=== PATIENT | female | born 1970 | race Two or more races ===

== ENCOUNTER 2025-08-14 11:11 | Inpatient (IN) | payer OTHER ==
[~2025-08-14] VITALS: Ht 175.3 cm; Wt 102.6 kg
--- NOTE | 2025-08-14 12:02 | ED.PDOC ---
History of Present Illness HPI Comments 54-year-old female presents to the ER with the chief complaint of nausea and vomiting. Patient reports an having sharp posterior headache associated with foggy memory, dizziness, nausea and an elevated blood pressure with altered yesterday. This morning the patient woke up with the elevated blood pressure and the for which prompted the patient to go to the ER. Patient notes on the headache being the worst that she has ever had. Denies any other symptoms at this time. Denies chills, fever, /V/D, SOB, CP. No other associated symptoms, modifiers, recent injuries or sick contacts present at this time. Chief Complaint: Nausea/Vomiting Time Seen by MD: 11:30 Reviewed Notes: Nurses Notes, Medications, Allergies Allergies: Coded Allergies: Penicillins (Verified Allergy, Severe, 08/14/25) Information Source: Patient Mode of Arrival: Ambulatory Severity: Moderate Timing: Hours Duration: Since onset, Hours Prehospital treatment: None Past Medical History PAST MEDICAL HISTORY: Denies Surgical History: Denies all surgeries ADVANCED PRACTICE PROVIDER History: No Pertinent ADVANCED PRACTICE PROVIDER History Family History Family History: Reviewed,noncontributory to illness, Unknown Social History Smoker: Non-Smoker Alcohol: Denies ETOH Use Drugs: Denies Drug Use Lives In: Home Constitutional: denies: chills, diaphoresis, fatigue, fever, malaise, sweats, weakness, others EENTM: denies: blurred vision, double vision, ear bleeding, ear discharge, ear drainage, ear pain, ear ringing, eye pain, eye redness, hearing loss, mouth pain, mouth swelling, nasal discharge, nose bleeding, nose congestion, nose pain, photophobia, tearing, throat pain, throat swelling, voice changes, others Respiratory: denies: cough, hemoptysis, orthopnea, SOB at rest, shortness of breath, SOB with excertion, stridor, wheezing, others Cardiovascular: denies: chest pain, dizzy spells, diaphoresis, Dyspnea on exertion, edema, irregular heart beat, left arm pain, lightheadedness, palpitations, PND, syncope, others Gastrointestinal: reports: nausea; denies: abdomen distended, abdominal pain, blood streaked bowels, constipated, diarrhea, dysphagia, difficulty swallowing, hematemesis, melena, poor appetite, poor fluid intake, rectal bleeding, rectal pain, vomiting, others Genitourinary: denies: abnormal vagina bleeding, burning, dyspareunia, dysuria, flank pain, frequency, hematuria, incontinence, pain, , vagina discharge, urgency, others Neurological: reports: dizziness, headache; denies: fainting, left sided numbness, left sided weakness, numbness, paresthesia, pre-existing deficit, right sided numbness, right sided weakness, seizure, speech problems, tingling, tremors, weakness, others Musculoskeletal: denies: back pain, gout, joint pain, joint swelling, muscle pain, muscle stiffness, neck pain, others Integumetry: denies: bruises, change in color, change in hair/nails, dryness, laceration, lesions, lumps, rash, wounds, others Allergic/Immunocompromised: denies: Difficulty Healing, Frequent Infections, Hives, Itching, others Hematologic/Lymphatic: denies: anemia, blood clots, easy bleeding, easy bruising, swollen glands, others Endocrine: denies: excessive hunger, excessive sweating, excessive thirst, excessive urination, flushing, intolerance to cold, intolerance to heat, u nexplained weight gain, unexplained weight loss, others Psychiatric: denies: anxiety, bipolar disorder, depression, hopeless, panic disorder, schizophrenia, sleepless, suicidal, others All Other Systems: Reviewed and Negative Physical Exam General Appearance: No Apparent Distress, Normal HEENT: Normal ENT Inspection, Pharynx Normal, TMs Normal Neck: Full Range of Motion, Non-Tender, Normal, Normal Inspection Respiratory: Chest Non-Tender, Lungs Clear, No Accessory Muscle Use, No Respiratory Distress, Normal Breath Sounds Cardiovascular: No Edema, No JVD, No Murmur, No Gallop, Normal Peripheral P ulses, Regular Rate/Rhythm Breast Exam: Deferred Gastrointestinal: No Organomegaly, Non Tender, No Pulsatile Mass, Normal Bowel Sounds, Soft Genitalia: Deferred Pelvic: Deferred Rectal: Deferred Extremities: No calf tenderness, Normal capillary refill, Normal inspection, Normal range of motion, Non-tender, No pedal edema Musculoskeletal : Apperance: Normal Neurologic: Alert, dial brusher II-XII nml as Tested, No Motor Deficits, Normal Affect, Normal Mood, No Sensory Deficits Cerebellar Function: Normal Reflexes: Normal Skin: Dry, Normal Color, Warm Lymphatic: No Adenopathy Was a procedure done? Was a procedure done?: No Differential Dx Considerations may include: See MDM X-Ray, Labs, Meds, VS Vital Signs Date Time Temp Pulse Resp B/P (MAP) Pulse Ox O2 Delivery O2 Flow Rate FiO2 08/14/25 14:15 Room Air* 0 21 08/14/25 14:15 97.8 79 16 160/91 (114) 98 97.8 08/14/25 12:10 157/106 08/14/25 12:02 98.7 69 16 157/106 (123) 98 98.7 08/14/25 12:02 69 16 98 Room Air 08/14/25 11:45 61 08/14/25 11:17 98.0 67 15 161/102 99 98.0 Lab Test 08/14/25 13:02 08/14/25 12:30 08/14/25 12:09 08/14/25 11:57 Range/Units Troponin I High Sensitivity 32 30 </=34 ng/L Urine Color Yellow Yellow Urine Clarity Clear Clear Urine pH 6.5 5.0-9.0 Urine Specific [place] 1.025 1.001-1.035 Urine Protein Negative Negative Urine Ketones Negative Negative Urine Blood Negative Negative /uL Urine Nitrite Negative Negative Urine Bilirubin Negative Negative Urine Urobilinogen 3 H Negative mg/dL Urine Leukocyte Esterase Negative Negative /uL Urine RBC 2 0 - 4 /hpf Urine Microscopic WBC 3 0-5 /HPF Urine Squamous Epithelial Cells Few <5 /hpf Urine Bacteria None seen None Seen /hpf Urine Mucus Few None Seen Urine Glucose Normal Normal mg/dL White Blood Count 4.0 L 4.4-10.8 10^3/uL Red Blood Count 5.45 H 4.0-5.20 10^6/uL Hemoglobin 13.7 12.2-16.2 g/dL Hematocrit 41.4 36.0-46.0 % Mean Corpuscular Volume 76.0 L 80.0-100.0 fL Mean Corpuscular Hemoglobin 25.1 L 28.0-32.0 pg Mean Corpuscular Hemoglobin Concent 33.1 32.0-36.0 g/dL Red Cell Distribution Width 17.2 H 11.8-14.3 % Platelet Count 279 140-450 10^3/uL Mean Platelet Volume 8.4 6.9-10.8 fL Neutrophils (%) (Auto) 48.1 37.0-80.0 % Lymphocytes (%) (Auto) 37.3 10.0-50.0 % Monocytes (%) (Auto) 10.4 0.0-12.0 % Eosinophils (%) (Auto) 3.3 0.0-7.0 % Basophils (%) (Auto) 0.9 0.0-2.0 % Neutrophils # (Auto) 1.9 1.6-8.6 10 ^3/uL Lymphocytes # (Auto) 1.5 0.4-5.4 10 ^3/uL Monocytes # (Auto) 0.4 0-1.3 10 ^3/uL Eosinophils # (Auto) 0.1 0-0.8 10 ^3/uL Basophils # (Auto) 0 0-0.2 10 ^3/uL Nucleated Red Blood Cells 0.1 % Sodium Level 143 136-145 mmol/L Potassium Level 3.9 3.5-5.1 mmol/L Chloride Level 108 H 98-107 mmol/L Carbon Dioxide Level 24 20-31 mmol/L Anion Gap 11 5-15 Blood Urea Nitrogen 10 9-23 mg/dL Creatinine 0.88 0.550-1.02 mg/dL Glomerular Filtration Rate Calc 78 >90 mL/min BUN/Creatinine Ratio 11.4 10.0-20.0 Serum Glucose 110 H 74-106 mg/dL Calcium Level 9.4 8.7-10.4 mg/dL B-Type Natriuretic Peptide 22.36 0-100 pg/mL POC Glucose 109 H 70-106 mg/dl Current Medications Medications (Trade) Dose Ordered Sig/Juaquin Route Start Time Stop Time Status Last Admin Hydralazine HCl (Apresoline Injection) 10 mg ONCE ONCE IV 08/14/25 11:45 08/14/25 11:46 DC 08/14/25 12:10 Metoclopramide HCl (Reglan Injection) 10 mg ONCE ONCE IV 08/14/25 12:15 08/14/25 12:16 DC 08/14/25 12:13 Acetaminophen (Tylenol Tablet) 650 mg ONCE ONCE PO 08/14/25 12:15 08/14/25 12:16 DC 08/14/25 12:13 Metoclopramide HCl (Reglan Injection) 5 mg ONCE ONCE IV 08/14/25 12:30 08/14/25 12:32 DC 08/14/25 12:35 Ondansetron HCl (Zofran) 4 mg ONCE ONCE IV 08/14/25 13:45 08/14/25 13:48 DC 08/14/25 14:15 Time of 1ST Reevaluation: 12:00 Reevaluation 1ST: Unchanged Patient Education/Counseling: Diagnosis, Treatment, Prognosis Family Education/Counseling: No Family Present Additional Information Medical Decision Making: A 54-year-old previously healthy female presents with acute severe left-sided headache, dizziness, nausea, and markedly elevated blood pressure. She also reported difficulty ambulating due to dizziness, significantly increasing concern for acute neurologic dysfunction, posterior circulation events, hypertensive crisis, or early hypertensive emergency. The differential diagnosis included intracranial hemorrhage, ischemic stroke (especially posterior circu lation), PRES, hypertensive emergency, subarachnoid hemorrhage, vestibular neuritis, migraine, ACS, and metabolic causes. Workup: CBC: benign; no leukocytosis or anemia. BMP: benign; no MERY or electrolyte derangements. Initial troponin: negative; reducing but not eliminating ACS risk. CT brain (independently reviewed by me): no acute findingsno bleed, mass effect, or hydrocephalus. Chest X-ray: benign; no pulmonary edema or widened mediastinum. EKG: non-ischemic; normal sinus rhythm without ST/T changes. Despite negative imaging, the presence of severe headache, markedly elevated blood pressure, and gait impairment(difficulty ambulating) raises concern for early hypertensive encephalopathy or evolving neurologic complications in the appropriate clinical context. ED Course / Treatment: Given her symptomatic hypertension and neurologic complaints, the patient was treated with IV hydralazine for blood pressure reduction. She also received IV Zofran, IV Reglan, and acetaminophen with partial symptomatic improvement. Serial neurologic exams were performed to ensure no clinical deterioration. She continued to report dizziness and unsteadiness, requiring assistance with ambulation, increasing concern for evolving hypertensive end-organ involvement. Given the constellation of symptoms and the requirement for IV antihypertensive management, outpatient care would be unsafe. Risk / Disposition: The patient requires hospital admission for: Continued BP monitoring and control Serial neurologic assessments Monitoring for progression toward hypertensive emergency Consideration of MRI brain if symptoms persist Exclusion of secondary causes of hypertension This encounter involved evaluation of high-risk conditions, high-risk medication administration, extensive diagnostic workup, and decision to admit. This meets criteria for high-complexity MDM (51750). Critical Care (38 Minutes) The patient required critical care due to a high probability of imminent or life-threatening deterioration related to severely elevated blood pressure with associated neurologic symptoms (severe headache, dizziness, difficulty ambulating), placing her at risk for intracranial hemorrhage, ischemic stroke, hypertensive encephalopathy, and acute end-organ damage. Critical care activities included: Serial neurologic examinations to monitor for stroke or encephalopathy Management and titration of IV hydralazine for acute blood pressure control Continuous monitoring for signs of progressive hypertensive emergency Review and interpretation of CT brain, EKG, CXR, and laboratory studies Clinical reassessment to evaluate response to antihypertensive therapy Coordination of admission for further management and monitoring Counseling the patient regarding risks, diagnostic findings, and treatment plan A total of 38 minutes of critical care time was provided, exclusive of separately billable procedures. SEPSIS Sepsis Screen Date sepsis recognized/suspect: Aug 14, 2025 Time Sepsis recognized/suspect: 1118 Recent Procedure: No On Antibiotic Therapy: No Respiratory Rate >20: No Heart Rate >90: No Temp<36 C (96.8 F) or >38.3 C: No SBP <90 or MAP <65 mmHG: No New Acute Mental Status Change: No Is the patient on CPAP, BIPAP,: No Physician Orders Electrocardigram (08/14/25 11:32) Chest Portable (08/14/25 11:43) Head Without Contrast (08/14/25 11:43) Troponin-I Hs (08/14/25 14:43) Electrocardigram (08/14/25 12:43) Electrocardigram (08/14/25 14:43) Vital Signs Date Time Temp Pulse Resp B/P (MAP) Pulse Ox O2 Delivery O2 Flow Rate FiO2 08/14/25 14:15 Room Air* 0 21 08/14/25 14:15 97.8 79 16 160/91 (114) 98 97.8 08/14/25 12:10 157/106 08/14/25 12:02 98.7 69 16 157/106 (123) 98 98.7 08/14/25 12:02 69 16 98 Room Air 08/14/25 11:45 61 08/14/25 11:17 98.0 67 15 161/102 99 98.0 Laboratory Tests Test 08/14/25 12:09 White Blood Count 4.0 10^3/uL (4.4-10.8) L Medications Medications Dose Ordered Sig/Juaquin Route Start Time Stop Time Status Last Admin Dose Admin Acetaminophen 650 mg ONCE ONCE PO 08/14/25 12:15 08/14/25 12:16 DC 08/14/25 12:13 Hydralazine HCl 10 mg ONCE ONCE IV 08/14/25 11:45 08/14/25 11:46 DC 08/14/25 12:10 Metoclopramide HCl 5 mg ONCE ONCE IV 08/14/25 12:30 08/14/25 12:32 DC 08/14/25 12:35 Metoclopramide HCl 10 mg ONCE ONCE IV 08/14/25 12:15 08/14/25 12:16 DC 08/14/25 12:13 Ondansetron HCl 4 mg ONCE ONCE IV 08/14/25 13:45 08/14/25 13:48 DC 08/14/25 14:15 Departure 1 Departure Time of Disposition: 14:59 Impression: Primary Impression: Hypertensive emergency Additional Impressions: Migraine Intractable nausea and vomiting Disposition: ADMITTED INPATIENT Admit to: Tele Condition: Guarded Critical Care Note Critical Care Time?: Yes Stability Stability form required: No I personally scribed for FRAN ZEPEDA MD ([email or web address]) on 08/14/25 at 12:02. Electronically submitted by Rober Bailon ([email or web address]). FRAN ZEPEDA MD Aug 14, 2025 12:02
[2025-08-14] MEDS: hydrALAZINE HCL 20 MG/ML VL IV ONE (12:10)
[2025-08-14] MEDS: ACETAMINOPHEN 325 MG TAB PO ONE (12:13)
[2025-08-14] MEDS: METOCLOPRAMIDE HCL 5MG/ml INJ 2ml VIAL IV ONE ×2 (12:13→12:35)
--- NOTE | 2025-08-14 12:17 | DVH ---
XY CHEST PORTABLE, HISTORY: htn, dizziness COMPARISON: None None TECHNICAL DATA: 1 view of the chest was obtained. FINDINGS: Lines and tubes: None Cardiomediastinal silhouette: normal Pulmonary vasculature: normal Lung expansion: normal Lung airspace: normal Lung interstitium: normal Pleura: normal Pneumothorax: no Bones: Unremarkable Other: no IMPRESSION: No acute intrathoracic abnormality.
--- NOTE | 2025-08-14 12:21 | DVH ---
EXAM DESCRIPTION: CT HEAD WITHOUT CONTRAST CLINICAL HISTORY: htn, dizziness COMPARISON: None TECHNIQUE: Noncontrast CT head was performed. Coronal MPR images were generated. CTDI/ DLP = / . Dose reduction technique with one or more of the following methods was performed: Automated exposure control, adjustment of the mA and/or kV according to patient size, use of iterative reconstruction technique. FINDINGS: No evidence of acute intracranial hemorrhage. No mass effect. No extra-axial collections of fluid or blood. The brain is normal in attenuation. The ventricles and sulci are normal in size for age. Clear basal cisterns. The calvarium is intact. The soft tissues are unremarkable. The paranasal sinuses and mastoid air cells are clear. IMPRESSION: 1. No acute intracranial findings.
[2025-08-14] MEDS: METOCLOPRAMIDE HCL 5MG/ml INJ 2ml VIAL ONE (12:41)
[2025-08-14 12:59] LABS: Hemoglobin 13.7 g/dL (12.2-16.2); Nucleated Red Blood Cells % 0.1 %
[2025-08-14 13:03] LABS: Hematocrit 41.4 % (36.0-46.0); Mean Corpuscular Hemoglobin 25.1 pg (28.0-32.0); Mean Corpuscular Volume 76.0 fL (80.0-100.0)
[2025-08-14 13:07] LABS: Potassium 3.9 mmol/L (3.5-5.1); Sodium 143 mmol/L (136-145)
[2025-08-14 13:08] LABS: Anion Gap 11 (5-15); Calcium 9.4 mg/dL (8.7-10.4); Carbon Dioxide 24 mmol/L (20-31)
[2025-08-14 13:09] LABS: Chloride 108 mmol/L (98-107)
[2025-08-14 13:13] LABS: BUN/Creatinine Ratio 11.4 (10.0-20.0); Blood Urea Nitrogen 10 mg/dL (9-23)
[2025-08-14 13:16] LABS: Glucose 110 mg/dL (74-106)
[2025-08-14 13:16] LABS: Urine Protein, UAD Negative (Negative)
[2025-08-14] MEDS: ONDANSETRON HCL 4 MG/2 ML VIAL IV ONE (14:15)
[2025-08-14] MEDS: HYDROcodone-ACET 7.5/325MG TAB PO ONE (17:07)
[2025-08-14 18:55] VITALS: PULSE 67; RESP 16; O2SAT 99
[2025-08-14 19:21] VITALS: PULSE 63; RESP 14; O2SAT 99
[2025-08-14] MEDS ORDERED: TEMAZEPAM 15 MG CAP PO PRN (19:30)
[2025-08-14] MEDS: ACETAMINOPHEN 325 MG TAB PO PRN (20:57)
--- NOTE | 2025-08-14 21:39 | DVHHP2 ---
History of Present Illness Reason for Visit: Headache History of Present Illness 54-year-old female presents for evaluation of a headache. Patient reports a three day history of developing a headache. Patient checked her blood pressure and it was elevated. On arrival to the emergency department her blood pressure was in the 180s. She also reports some dizziness and nausea. Patient is currently not taking any medications. Denies chest pain or shortness for breath. Past Medical History Denies Past Surgical History Denies Family History Noncontributory Smoke: No ALCOHOL: none Drugs: None Lives: with Family Review of Systems Review of Systems Review of systems are currently negative otherwise addressed in HPI. Allergies: Coded Allergies: Penicillins (Verified Allergy, Severe, 08/14/25) Medications Current Medications Medications Dose Ordered Sig/Juaquin Route Start Time Stop Time Status Last Admin Dose Admin Hydralazine HCl 10 mg Q6HP PRN IV 08/14/25 19:30 Temazepam 15 mg QHSP PRN PO 08/14/25 19:30 Ondansetron HCl 4 mg Q4HP PRN IV 08/14/25 19:30 Acetaminophen 650 mg Q6HP PRN PO 08/14/25 19:30 08/14/25 20:57 650 MG Sumatriptan Succinate 50 mg Q2HP PRN PO 08/14/25 21:45 UNV Acetaminophen/ Hydrocodone Bitart 1 tab Q4HP PRN PO 08/14/25 21:45 UNV Acetaminophen 650 mg Q6HP PRN PO 08/14/25 21:45 UNV Lisinopril 10 mg DAILY PO 08/15/25 10:00 UNV Aspirin 81 mg DAILY PO 08/15/25 10:00 UNV Atorvastatin Calcium 10 mg HS PO 08/14/25 22:00 UNV Exam Vital Signs Vital Signs Date Time Temp Pulse Resp B/P (MAP) Pulse Ox O2 Delivery O2 Flow Rate FiO2 08/14/25 20:57 98.4 08/14/25 20:00 69 08/14/25 19:21 14 99 Room Air* 0 08/14/25 19:21 158/94 (115) Exam Gen: 54-year-old female in mild distress, obese Skin: Warm, dry, normal color and texture, no rash. HEENT: Normocephalic atraumatic, mucous membranes moist and pink. Neck: Cervical and supraclavicular nodes normal without enlargement, trachea is midline, thyroid gland is normal without masses. Pulmonary: Clear to auscultation and percussion bilaterally. Cardiac: Regular rate and rhythm. No murmur Abdomen: Soft, nontender, nondistended, bowel sounds present all 4 quadrants, no guarding, no rigidity, no organomegaly. Extremities: No cyanosis, clubbing, no edema Neuro: Cranial nerves II through XII grossly intact, normal affect and speech, no focal motor deficits. Labs/Xrays ORDERING PHYSICIAN: FRAN ZEPEDA MD PROCEDURE(s): CXRP - CHEST PORTABLE REASON: htn, dizziness ORDER NUMBER(s): [id number], ACCESSION NUMBER(s): [id number] CHEST PORTABLE, HISTORY: htn, dizziness COMPARISON: None None TECHNICAL DATA: 1 view of the chest was obtained. FINDINGS: Lines and tubes: None Cardiomediastinal silhouette: normal Pulmonary vasculature: normal Lung expansion: normal Lung airspace: normal Lung interstitium: normal Pleura: normal Pneumothorax: no Bones: Unremarkable Other: no IMPRESSION: No acute intrathoracic abnormality. RING PHYSICIAN: FRAN ZEPEDA MD PROCEDURE(s): HWOCT - HEAD WITHOUT CONTRAST REASON: htn, dizziness ORDER NUMBER(s): [id number], ACCESSION NUMBER(s): [id number] EXAM DESCRIPTION: CT HEAD WITHOUT CONTRAST CLINICAL HISTORY: htn, dizziness COMPARISON: None TECHNIQUE: Noncontrast CT head was performed. Coronal MPR images were generated. CTDI/ DLP = / . Dose reduction technique with one or more of the following methods was performed: Automated exposure control, adjustment of the mA and/or kV according to patient size, use of iterative reconstruction technique. FINDINGS: No evidence of acute intracranial hemorrhage. No mass effect. No extra-axial collections of fluid or blood. The brain is normal in attenuation. The ventricles and sulci are normal in size for age. Clear basal cisterns. The calvarium is intact. The soft tissues are unremarkable. The paranasal sinuses and mastoid air cells are clear. IMPRESSION: 1. No acute intracranial findings. Labs Test 08/14/25 15:26 08/14/25 12:30 08/14/25 12:09 08/14/25 11:57 Range/Units Troponin I High Sensitivity 37 *H </=34 ng/L Urine Color Yellow Yellow Urine Clarity Clear Clear Urine pH 6.5 5.0-9.0 Urine Specific Kimball 1.025 1.001-1.035 Urine Protein Negative Negative Urine Ketones Negative Negative Urine Blood Negative Negative /uL Urine Nitrite Negative Negative Urine Bilirubin Negative Negative Urine Urobilinogen 3 H Negative mg/dL Urine Leukocyte Esterase Negative Negative /uL Urine RBC 2 0 - 4 /hpf Urine Microscopic WBC 3 0-5 /HPF Urine Squamous Epithelial Cells Few <5 /hpf Urine Bacteria None seen None Seen /hpf Urine Mucus Few None Seen Urine Glucose Normal Normal mg/dL White Blood Count 4.0 L 4.4-10.8 10^3/uL Red Blood Count 5.45 H 4.0-5.20 10^6/uL Hemoglobin 13.7 12.2-16.2 g/dL Hematocrit 41.4 36.0-46.0 % Mean Corpuscular Volume 76.0 L 80.0-100.0 fL Mean Corpuscular Hemoglobin 25.1 L 28.0-32.0 pg Mean Corpuscular Hemoglobin Concent 33.1 32.0-36.0 g/dL Red Cell Distribution Width 17.2 H 11.8-14.3 % Platelet Count 279 140-450 10^3/uL Mean Platelet Volume 8.4 6.9-10.8 fL Neutrophils (%) (Auto) 48.1 37.0-80.0 % Lymphocytes (%) (Auto) 37.3 10.0-50.0 % Monocytes (%) (Auto) 10.4 0.0-12.0 % Eosinophils (%) (Auto) 3.3 0.0-7.0 % Basophils (%) (Auto) 0.9 0.0-2.0 % Neutrophils # (Auto) 1.9 1.6-8.6 10 ^3/uL Lymphocytes # (Auto) 1.5 0.4-5.4 10 ^3/uL Monocytes # (Auto) 0.4 0-1.3 10 ^3/uL Eosinophils # (Auto) 0.1 0-0.8 10 ^3/uL Basophils # (Auto) 0 0-0.2 10 ^3/uL Nucleated Red Blood Cells 0.1 % Sodium Level 143 136-145 mmol/L Potassium Level 3.9 3.5-5.1 mmol/L Chloride Level 108 H 98-107 mmol/L Carbon Dioxide Level 24 20-31 mmol/L Anion Gap 11 5-15 Blood Urea Nitrogen 10 9-23 mg/dL Creatinine 0.88 0.550-1.02 mg/dL Glomerular Filtration Rate Calc 78 >90 mL/min BUN/Creatinine Ratio 11.4 10.0-20.0 Serum Glucose 110 H 74-106 mg/dL Calcium Level 9.4 8.7-10.4 mg/dL B-Type Natriuretic Peptide 22.36 0-100 pg/mL POC Glucose 109 H 70-106 mg/dl SEPSIS Sepsis Screen Date sepsis recognized/suspect: Aug 14, 2025 Time Sepsis recognized/suspect: 1944 Recent Procedure: No On Antibiotic Therapy: No Respiratory Rate >20: No Heart Rate >90: No Temp<36 C (96.8 F) or >38.3 C: No SBP <90 or MAP <65 mmHG: No New Acute Mental Status Change: No Is the patient on CPAP, BIPAP,: No Physician Orders Cardiac Diet-2gna,Lofat,Lochol (08/14/25 Dinner) Hydralazine Injection (Apresoline Inject (08/14/25 19:30) Basic Metabolic Panel (08/15/25 04:00) Troponin-I Hs (08/15/25 04:00) Admit (08/14/25 19:24) Temazepam (Restoril) (08/14/25 19:30) Ondansetron Hcl (Zofran) (08/14/25 19:30) Echo 2d Mode Cardiac Dop (08/14/25 19:24) Condition: Stable (08/14/25 19:24) Acetaminophen Tablet (Tylenol Tablet) (08/14/25 19:30) Bedrest With Bathroom Privileg (08/14/25 19:24) Sumatriptan Succinate Tablet (Imitrex Ta (08/14/25 21:45) Hydrocodone-Acet 5/325mg Tab (Empire 5/32 (08/14/25 21:45) Acetaminophen Tablet (Tylenol Tablet) (08/14/25 21:45) Lisinopril Tablet (Zestril Tablet) (08/14/25 21:45) Lisinopril Tablet (Zestril Tablet) (08/15/25 10:00) Thyroid Stimulating Hormone (08/14/25 21:33) Lipid Panel (08/14/25 21:33) Aspirin Tablet (08/15/25 10:00) Atorvastatin (Lipitor) (08/14/25 22:00) Vital Signs Date Time Temp Pulse Resp B/P (MAP) Pulse Ox O2 Delivery O2 Flow Rate FiO2 08/14/25 20:57 98.4 08/14/25 20:00 69 08/14/25 19:21 63 14 99 Room Air* 0 21 08/14/25 19:21 98.4 63 14 158/94 (115) 99 98.4 08/14/25 18:55 67 16 99 Room Air* 0 08/14/25 18:55 97.8 67 16 137/80 (99) 99 97.8 08/14/25 18:37 98.0 77 16 156/103 (120) 99 98.0 08/14/25 14:15 Room Air* 0 08/14/25 14:15 97.8 79 16 160/91 (114) 98 97.8 Laboratory Tests Test 08/14/25 12:09 White Blood Count 4.0 10^3/uL (4.4-10.8) L Medications Medications Dose Ordered Sig/Juaquin Route Start Time Stop Time Status Last Admin Dose Admin Acetaminophen 650 mg ONCE ONCE PO 08/14/25 12:15 08/14/25 12:16 DC 08/14/25 12:13 650 MG Acetaminophen 650 mg Q6HP PRN PO 08/14/25 19:30 08/14/25 20:57 650 MG Acetaminophen/ Hydrocodone Bitart 1 tab ONCE ONCE PO 08/14/25 17:00 08/14/25 17:01 DC 08/14/25 17:07 1 TAB Hydralazine HCl 10 mg ONCE ONCE IV 08/14/25 11:45 08/14/25 11:46 DC 08/14/25 12:10 10 MG Metoclopramide HCl 5 mg ONCE ONCE IV 08/14/25 12:30 08/14/25 12:32 DC 08/14/25 12:35 5 MG Metoclopramide HCl 10 mg ONCE ONCE IV 08/14/25 12:15 08/14/25 12:16 DC 08/14/25 12:13 10 MG Ondansetron HCl 4 mg ONCE ONCE IV 08/14/25 13:45 08/14/25 13:48 DC 08/14/25 14:15 4 MG Assessment/Plan Assessment/Plan Assessment Hypertensive crisis Elevated troponin Obesity Plan Admit the patient to Med surge to the hospitalist Echocardiogram pending Start antihypertensives Continue treatment per orders. Plan discussed with: Patient My Orders Orders - BARRON SWEENEY Procedure Category Date Status Time Hydralazine Injection PHA 08/14/25 In Process (Apresoline Inject 19:30 Basic Metabolic Panel LAB 08/15/25 Verified 04:00 Troponin-I Hs LAB 08/15/25 Verified 04:00 Admit ADMIT 08/14/25 Transmitted 19:24 Temazepam (Restoril) PHA 08/14/25 In Process 19:30 Ondansetron Hcl PHA 08/14/25 In Process (Zofran) 19:30 Echo 2d Mode Cardiac US 08/14/25 Logged DOP 19:24 Condition: Stable RAEANN 08/14/25 In Process 19:24 Acetaminophen Tablet PHA 08/14/25 In Process (Tylenol Tablet) 19:30 Bedrest With Bathroom RAEANN 08/14/25 In Process Privileg 19:24 Sumatriptan Succinate PHA 08/14/25 Logged Tablet (Imitrex Ta 21:45 Hydrocodone-Acet PHA 08/14/25 Logged 5/325mg Tab (Empire 21:45 Acetaminophen Tablet PHA 08/14/25 Logged (Tylenol Tablet) 21:45 Lisinopril Tablet PHA 08/14/25 Logged (Zestril Tablet) 21:45 Lisinopril Tablet PHA 08/15/25 Logged (Zestril Tablet) 10:00 Thyroid Stimulating LAB 08/14/25 Logged Hormone 21:33 Lipid Panel LAB 08/14/25 Logged 21:33 Aspirin Tablet PHA 08/15/25 Logged 10:00 Atorvastatin (Lipitor) PHA 08/14/25 Logged 22:00 Date of Service: Aug 14, 2025 Billing Provider: BARRON SWEENEY Common Visit Codes: [id number] INP/OBS CARE (HIGH) BARRON SWEENEY Aug 14, 2025 21:39
[2025-08-14] MEDS ORDERED: ACETAMINOPHEN 325 MG TAB PO PRN (21:45)
[2025-08-14] MEDS: LISINOPRIL 5 MG TAB PO ONE (21:51)
[2025-08-14] MEDS: ONDANSETRON HCL 4 MG/2 ML VIAL IV PRN (21:51)
[2025-08-14 22:07] LABS: Cholesterol 228 mg/dL (< 200); HDL Cholesterol 67 mg/dL (40-59); Triglycerides 181 mg/dL (< 150)
[2025-08-14] MEDS: ATORVASTATIN 20 MG TAB PO SCH (22:52)
[2025-08-14 23:00] VITALS: BP 169/100; PULSE 59; RESP 16; TEMP 98.5; O2SAT 98
[2025-08-14] MEDS: hydrALAZINE HCL 20 MG/ML VL IV PRN (23:55)
[2025-08-15] VITALS (8 sets, daily range): BP systolic 125–169; BP diastolic 77–105; PULSE 56–73; RESP 16–18; TEMP 97.4–98.6; O2SAT 97–100
[2025-08-15 06:06] LABS: Chloride 103 mmol/L (98-107); Potassium 3.8 mmol/L (3.5-5.1); Sodium 139 mmol/L (136-145)
[2025-08-15 06:07] LABS: Anion Gap 12 (5-15); Calcium 9.7 mg/dL (8.7-10.4); Carbon Dioxide 24 mmol/L (20-31)
[2025-08-15 06:13] LABS: BUN/Creatinine Ratio 9.2 (10.0-20.0); Blood Urea Nitrogen 7 mg/dL (9-23); Glucose 107 mg/dL (74-106)
[2025-08-15] MEDS: LISINOPRIL 5 MG TAB PO SCH (09:24)
--- NOTE | 2025-08-15 11:13 | ECG ---
[facility] Test Date: 2025-08-14 Test Time: 11:45:00 Pat Name: DANIELLE QUIROGA Department: ED Room: 0295 A Gender: F Crepe Sole Scourer: [place] : 1970 Requested By: FRAN ZEPEDA Order Number: [id number] Reading MD: Elliott Levine Measurements Intervals [place] Rate: 61 P: 36 LA: 164 QRS: 36 QRSD: 89 T: 18 QT: 426 QTc: 429 Interpretive Statements Sinus rhythm Low voltage, precordial leads Electronically Signed On 08-16-2025 17:55:14 PST by Elliott Levine Please click the below link to view image of tracing.
[2025-08-15] MEDS: HYDROcodone-ACET 5/325MG TAB PO PRN (13:51)
[2025-08-15] MEDS: KETOROLAC TROMETH 30 MG/ML 1ML VIAL IV ONE ×3 (17:30→23:49)
[2025-08-15 18:39] LABS: INR 0.96 (0.9-1.15); Partial Thromboplastin Time 31.2 SEC (24.5-34.5); Prothrombin Time 10.2 sec (9.3-11.8)
[2025-08-15 18:40] LABS: Free T3 2.68 pg/mL (2.3-4.2); Free T4 (Free Thyroxine) 1.01 ng/dL (0.89-1.76)
--- NOTE | 2025-08-15 19:15 | DVHPNRES ---
Progress Note Date Seen: Aug 15, 2025 Resident Creating Document: UNIQUE FRY RESIDENT Medical Necessity Reason Pt with a Central, PICC or Fol: No Subjective Review of Systems Patient is a 54-year-old female with past medical history of anxiety, hyperlipidemia came to the ED with chief complaints of severe, throbbing left- sided headache which was 9/10 in intensity and radiating to the neck associated with dizziness, blurry vision, palpitations but denies any shortness of breath, chest pain, loss of consciousness, Head trauma. patient states that she checked her blood pressure at home and it was elevated to 170 over 100. On arrival to emergency department patient's blood pressure was in 180s. Patient does not take any antihypertensive medications. Patient does state she had is in menopause and has hot flashes, palpitations, spasms in her back, feels constipated. Patient denies taking any oral contraceptive pills. past surgical history: Denies Family history: Hypothyroidism in mother, daughter social history: Patient denies smoking, drinking, drug use. Lives with: Family Constitutional: Denies weight loss, fever and chills. HEENT: blurry vision Respiratory: Denies shortness of breath and cough Cardiovascular: Denies chest discomfort or palpitations GI: Mild abdominal distention, reports improvement on abdominal discomfort. : Denies dysuria and urinary frequency. Musculoskeletal: Denies myalgias and joint pain Skin: Denies rash and pruritus. Neurological: dizziness, left-sided headache, 08/15/2025: Patient seen at bedside. Patient complains of severe 9/10 left- sided headache which is radiating to the back of neck. patient's TSH is elevated, ordered T4, T3. IV Toradol once given patient is started on atorvastatin 20 mg for hyperlipidemia. ordered renal artery duplex, renin angiotensin. Objective vital signs Vital Sign Date Time Temp Pulse Resp B/P (MAP) Pulse Ox O2 Delivery O2 Flow Rate FiO2 08/15/25 16:45 97.4 65 16 125/80 (95) 99 97.4 08/15/25 08:00 Room Air* 0 21 Total Intake and Output 08/14/25 08/14/25 08/15/25 15:00 23:00 07:00 Intake Total 240 ml Output Total 200 ml Balance 40 ml medications Current Medications Medications Dose Ordered Sig/Juaquin Route Start Time Stop Time Status Last Admin Dose Admin Acetaminophen 650 mg Q6HP PRN PO 08/14/25 21:45 Lisinopril 10 mg DAILY PO 08/15/25 10:00 08/15/25 09:24 10 MG Atorvastatin Calcium 20 mg HS PO 08/15/25 22:00 Examination General: patient in severe distress. Patient following commands. HEENT: Normocephalic, atraumatic, moist mucous membranes Respiratory/pulmonary: Clear lungs bilaterally, vesicular murmurs present in almost all lung lucas, no associated crackles or wheezes. Cardiovascular: Normal heart sounds S1 and S2 with no associated murmurs Abdomen: Abdomen nondistended, there is no pain to palpation in any of the abdominal quadrants, no palpable masses. obese abdomen Extremities: There is no peripheral edema present at the lower extremities. Peripheral Pulses: 3+ Radial (R). 3+ Radial (L). 3+ Dorsalis pedis (R). 3+ Dorsalis pedis(L) Skin: No rashes or pruritus, there is no sacral edema present at this time. Neurological: Intact cranial nerves with no focal neurologic deficits laboratory and microbiology Laboratory Tests 08/15/25 04:44 08/14/25 12:09 Test 08/15/25 04:44 Range/Units Serum Glucose 107 H 74-106 mg/dL Problem List/Assessment/Plan Problem List/Assessment/Plan Hypertensive crisis Rule out secondary causes of hypertension - head CT showed No acute intracranial findings. - lisinopril 10 mg - renal duplex scan ordered - renin angiotensin ordered - Echo ordered, pending Dyslipidemia - atorvastatin 20 mg ? Hypothyroidism - TSH elevated - ordered free T4, T3 Cannabis Use disorder - UDS: positive for Cannabis - counseled on cessation of cannabis use for more than 10 minutes Obesity BMI 33.7 -patient counseled on lifestyle modification, diet, exercise for greater than 18 minutes PPI prophylaxis: Not indicated DVT prophylaxis: Ambulatory Goals of care addressed with the patient for more than 27 minutes: Full code status Case discussed with Dr. Guerra, patient and nurse Plan discussed with: Patient Date of Service: Aug 15, 2025 Billing Provider: JUAN GUERRA MD Common Visit Codes: [id number] INP/OBS CARE(HIGH) UNIQUE FRY RESIDENT Aug 15, 2025 19:15 JUAN GUERRA MD Aug 16, 2025 18:54
[2025-08-15 21:48] LABS: Protein, Urine 8.2 mg/dL (1-14)
[2025-08-15 21:50] LABS: Cannabinoid Screen, Urine Pos (NEGATIVE)
[2025-08-15 21:56] LABS: Amphetamine Screen, Urine Neg (NEGATIVE); Barbiturate Scree,Urine Neg (NEGATIVE); Benzodiazephine Screen, Urine Neg (NEGATIVE); Cocaine Screen, Urine Neg (NEGATIVE); Opiate Scree,Urine Neg (NEGATIVE); Phencyclidine Screen, Urine Neg (NEGATIVE)
[2025-08-15] MEDS: ATORVASTATIN 20 MG TAB PO SCH (22:16)
[2025-08-16] VITALS (9 sets, daily range): BP systolic 126–146; BP diastolic 79–96; PULSE 60–93; RESP 17–18; TEMP 98–98.7; O2SAT 97–100
[2025-08-16] MEDS: ONDANSETRON HCL 4 MG/2 ML VIAL IV PRN (00:03)
[2025-08-16 07:18] LABS: Hemoglobin 14.1 g/dL (12.2-16.2)
[2025-08-16 07:22] LABS: Hematocrit 42.4 % (36.0-46.0); Mean Corpuscular Hemoglobin 25.3 pg (28.0-32.0); Mean Corpuscular Volume 76.1 fL (80.0-100.0); Nucleated Red Blood Cells % 0.2 %
[2025-08-16 07:51] LABS: Anion Gap 13 (5-15); Carbon Dioxide 21 mmol/L (20-31); Chloride 103 mmol/L (98-107); Potassium 3.7 mmol/L (3.5-5.1); Sodium 137 mmol/L (136-145)
[2025-08-16 07:53] LABS: Calcium 9.4 mg/dL (8.7-10.4)
[2025-08-16 07:58] LABS: BUN/Creatinine Ratio 12.3 (10.0-20.0); Blood Urea Nitrogen 10 mg/dL (9-23); Glucose 87 mg/dL (74-106)
--- NOTE | 2025-08-16 08:59 | DVH ---
ULTRASOUND RENAL CLINICAL INDICATION: Hypertension TECHNIQUE: Real-time sonographic, duplex, and color Doppler images of the kidneys were obtained. FINDINGS: The right kidney measures 10 cm and is normal in size. The right renal echogenicity, contour and cortical thickness are within normal limits. No hydronephrosis, large masses or perinephric fluid is seen. The left kidney measures 10 cm and is normal in size. The left renal echogenicity, contour, and cortical thickness are within normal limits. No hydronephrosis, large masses or perinephric fluid is seen. Subsequent Doppler interrogation of the kidneys was performed. IMPRESSION: Normal examination. No evidence of renal artery stenosis. [<reference, normal RI <.7>]
[2025-08-16] MEDS: ACETAMINOPHEN 325 MG TAB PO SCH (09:10)
--- NOTE | 2025-08-16 12:16 | DVHSR ---
APPROVED REPORT EXAM: Two-dimensional and M-mode echocardiogram with Doppler and color Doppler. Blood Pressure: 148/105 mmHg INDICATION Hypertension RISK FACTORS Height: 5'9, Weight: 228 DIMENSIONS LVDd 5.0 (3.8-5.7cm) LA (2D) 3.3 (1.9-4.0cm) Aortic Root 2.9 (2.0-3.7cm) LVDs 3.5 (2.5-4.0cm) LA (MM) (1.9-4.0cm) Aortic Cusp Exc 1.8 (1.5-2.0cm) EF (%) 58.0 (55-70%) Rt. Atrium 4.3 (1.9-4.0cm) Asc. Aorta 3.5 cm IVSd 1.0 (0.7-1.1cm) RV (D) (1.8-2.4cm) PWd 1.0 (0.7-1.1cm) Mitral Valve Mitral Mitral Stenosis E wave 0.72m/s MV Mean GR. mmHg A wave 0.89m/s MV Peak GR. mmHg E/A ratio 0.8 2D MVA cm2 DECEL Time 309ms PRESS 1/2 Time ms Aortic Valve Aortic Valve Aortic Stenosis V1 1.18m/s AO Mean GR. mmHg V2 1.35m/s AO Peak GR. 7mmHg LVOT Diameter 2.0 (1.8-2.4cm) Doppler QUINN 2.74cm2 Pulmonic Valve V2 0.90m/s Other Information Technically limited study due to body habitus. Conclusion lvef 60% normal rv function left atrium enlarged mild no severe valve abnormalities noted
--- NOTE | 2025-08-16 14:43 | DVH ---
CLINICAL INDICATION: Migraines COMPARISON: CT HEAD WITHOUT CONTRAST on DOS: 08/14/25 TECHNIQUE: Multisequence multiplanar MRI images of the brain were obtained without contrast. FINDINGS: No acute infarct or hemorrhage. No mass or midline shift. Ventricles and sulci are within normal limits. Basal cisterns are patent. Cerebellum, brainstem, and midline structures are within normal limits. Mild mucosal thickening of the paranasal sinuses. Orbits are grossly unremarkable. IMPRESSION: No evidence of acute intracranial abnormality.
[2025-08-16] MEDS: ACETAMINOPHEN 325 MG TAB PO PRN (16:15)
[2025-08-16] MEDS ORDERED: ATOR20TA50 PO (16:40)
[2025-08-16] MEDS ORDERED: AML5T PO (16:40)
[2025-08-16] MEDS ORDERED: LISI2.5T47 PO (16:40)
--- NOTE | 2025-08-16 17:10 | DVHDSRES ---
Discharge Summary Date of Admission Resident Creating Document: UNIQUE FRY Aug 14, 2025 at 19:24 Date of Discharge: Aug 16, 2025 Admitting Diagnosis Hypertensive crisis Labs/Diagnostic Data: Laboratory Results Test 08/16/25 05:40 08/15/25 22:05 08/15/25 17:59 08/15/25 04:44 White Blood Count 4.2 10^3/uL (4.4-10.8) Red Blood Count 5.57 10^6/uL (4.0-5.20) Hemoglobin 14.1 g/dL (12.2-16.2) Hematocrit 42.4 % (36.0-46.0) Mean Corpuscular Volume 76.1 fL (80.0-100.0) Mean Corpuscular Hemoglobin 25.3 pg (28.0-32.0) Mean Corpuscular Hemoglobin Concent 33.3 g/dL (32.0-36.0) Red Cell Distribution Width 17.1 % (11.8-14.3) Platelet Count 305 10^3/uL (140-450) Mean Platelet Volume 8.4 fL (6.9-10.8) Neutrophils (%) (Auto) 56.3 % (37.0-80.0) Lymphocytes (%) (Auto) 33.0 % (10.0-50.0) Monocytes (%) (Auto) 8.4 % (0.0-12.0) Eosinophils (%) (Auto) 1.9 % (0.0-7.0) Basophils (%) (Auto) 0.4 % (0.0-2.0) Neutrophils # (Auto) 2.4 10 ^3/uL (1.6-8.6) Lymphocytes # (Auto) 1.4 10 ^3/uL (0.4-5.4) Monocytes # (Auto) 0.4 10 ^3/uL (0-1.3) Eosinophils # (Auto) 0.1 10 ^3/uL (0-0.8) Basophils # (Auto) 0 10 ^3/uL (0-0.2) Nucleated Red Blood Cells 0.2 % Sodium Level 137 mmol/L (136-145) Potassium Level 3.7 mmol/L (3.5-5.1) Chloride Level 103 mmol/L (98-107) Carbon Dioxide Level 21 mmol/L (20-31) Anion Gap 13 (5-15) Blood Urea Nitrogen 10 mg/dL (9-23) Creatinine 0.81 mg/dL (0.550-1.02) Glomerular Filtration Rate Calc 86 mL/min (>90) BUN/Creatinine Ratio 12.3 (10.0-20.0) Serum Glucose 87 mg/dL (74-106) Calcium Level 9.4 mg/dL (8.7-10.4) Prothrombin Time 10.2 sec (9.3-11.8) Prothrombin Time INR 0.96 (0.9-1.15) Activated Partial Thromboplast Time 31.2 SEC (24.5-34.5) Free Thyroxine (T4) Calculated 1.01 ng/dL (0.89-1.76) Free Triiodothyronine (T3) pg/mL 2.68 pg/mL (2.3-4.2) Troponin I High Sensitivity 34 ng/L (</=34) Test 08/14/25 15:29 08/14/25 13:27 08/14/25 12:30 08/14/25 12:09 Thyroid Stimulating Hormone (TSH) 6.22 uIU/mL (0.55-4.78) Triglycerides Level 181 mg/dL (< 150) Cholesterol Level 228 mg/dL (< 200) LDL Cholesterol 136 mg/dL (< 100) HDL Cholesterol 67 mg/dL (40-59) Urine Color Yellow (Yellow) Urine Clarity Clear (Clear) Urine pH 6.5 (5.0-9.0) Urine Specific [place] 1.025 (1.001-1.035) Urine Protein Negative (Negative) Urine Ketones Negative (Negative) Urine Blood Negative /uL (Negative) Urine Nitrite Negative (Negative) Urine Bilirubin Negative (Negative) Urine Urobilinogen 3 mg/dL (Negative) Urine Leukocyte Esterase Negative /uL (Negative) Urine RBC 2 /hpf (0 - 4) Urine Microscopic WBC 3 /HPF (0-5) Urine Squamous Epithelial Cells Few /hpf (<5) Urine Bacteria None seen /hpf (None Seen) Urine Mucus Few (None Seen) Urine Creatinine 176.22 mg/dL (30.0-125.0) Urine Protein/Creatinine Ratio 0.05 Urine Glucose Normal mg/dL (Normal) Urine Total Protein 8.2 mg/dL (1-14) Urine Opiates Screen Neg (NEGATIVE) Urine Fentanyl Screen Neg (NEGATIVE) Urine Barbiturates Screen Neg (NEGATIVE) Urine Phencyclidine Screen Neg (NEGATIVE) Urine Amphetamines Screen Neg (NEGATIVE) Urine Benzodiazepines Screen Neg (NEGATIVE) Urine Cocaine Screen Neg (NEGATIVE) Urine Cannabinoids Screen Pos (NEGATIVE) B-Type Natriuretic Peptide 22.36 pg/mL (0-100) Test 08/14/25 11:57 POC Glucose 109 mg/dl (70-106) Other Laboratory Tests 08/16/25 05:40 Brief Hx & Hospital Course: Patient is a 54-year-old female with past medical history of anxiety, hyperlipidemia came to the ED with chief complaints of severe, throbbing left- sided headache which was 9/10 in intensity and radiating to the neck associated with dizziness, blurry vision, palpitations but denies any shortness of breath, chest pain, loss of consciousness, Head trauma. patient states that she checked her blood pressure at home and it was elevated to 170 over 100. On arrival to emergency department patient's blood pressure was in 180s. Patient does not take any antihypertensive medications. Patient does state she had is in menopause and has hot flashes, palpitations, spasms in her back, feels constipated. Patient denies taking any oral contraceptive pills. past surgical history: Denies Family history: Hypothyroidism in mother, daughter social history: Patient denies smoking, drinking, drug use. Lives with: [facility] Hospital course: Patient admitted for severe throbbing headache. Patient had hypertensive crisis for which lisinopril 10 mg amlodipine were given. head CT showed no acute intracranial findings. Ordered renal duplex ultrasound which showed normal findings. Patient's renal angiotensin ordered which showed normal limits. Ruled out secondary causes of hypertension. Echo ordered which showed LVEF of 60%. Patient had dyslipidemia for which atorvastatin 20 mg given. MRI ordered which showed normal findings. Patient had obesity for which lifestyle modifications, diet, exercise were counseled for greater than 18 minutes. Patient at discharge has decreased headaches for which she will continue taking Tylenol and follow-up with her PCP in 1 week. Patient communicated understanding of her discharge plan and has agreed. General: A&O x4 Patient following commands. HEENT: Normocephalic, atraumatic, moist mucous membranes Respiratory/pulmonary: Clear lungs bilaterally, vesicular murmurs present in almost all lung lucas, no associated crackles or wheezes. Cardiovascular: Normal heart sounds S1 and S2 with no associated murmurs Abdomen: Abdomen nondistended, there is no pain to palpation in any of the abdominal quadrants, no palpable masses. obese abdomen Extremities: There is no peripheral edema present at the lower extremities. Peripheral Pulses: 3+ Radial (R). 3+ Radial (L). 3+ Dorsalis pedis (R). 3+ Dorsalis pedis(L) Skin: No rashes or pruritus, there is no sacral edema present at this time. Neurological: Intact cranial nerves with no focal neurologic deficits Patient is to take amlodipine 5 mg p.o. daily Atorvastatin 20 mg p.o. daily Lisinopril 2.5 mg p.o. daily Operations or Procedures ORDERING PHYSICIAN: UNIQUE FRY PROCEDURE(s): MBHL - BRAIN HEAD WO CONTRAST REASON: Migraines ORDER NUMBER(s): [id number], ACCESSION NUMBER(s): [id number] CLINICAL INDICATION: Migraines COMPARISON: CT HEAD WITHOUT CONTRAST on DOS: 08/14/25 TECHNIQUE: Multisequence multiplanar MRI images of the brain were obtained without contrast. FINDINGS: No acute infarct or hemorrhage. No mass or midline shift. Ventricles and sulci are within normal limits. Basal cisterns are patent. Cerebellum, brainstem, and midline structures are within normal limits. Mild mucosal thickening of the paranasal sinuses. Orbits are grossly unremarkable. IMPRESSION: No evidence of acute intracranial abnormality. ATED BY: ANDRES JERRY DO DICTATED DATE/TIME: 08/16/25 1440 SIGNED BY: ANDRES JERRY DO ORDERING PHYSICIAN: ANA PAULA BALL PROCEDURE(s): RAC - RENAL ARTERY COMP REASON: ORDER NUMBER(s): [id number], ACCESSION NUMBER(s): [id number] ULTRASOUND RENAL CLINICAL INDICATION: Hypertension TECHNIQUE: Real-time sonographic, duplex, and color Doppler images of the kidneys were obtained. FINDINGS: The right kidney measures 10 cm and is normal in size. The right renal echogenicity, contour and cortical thickness are within normal limits. No hydronephrosis, large masses or perinephric fluid is seen. The left kidney measures 10 cm and is normal in size. The left renal echogenicity, contour, and cortical thickness are within normal limits. No hydronephrosis, large masses or perinephric fluid is seen. Subsequent Doppler interrogation of the kidneys was performed. IMPRESSION: Normal examination. No evidence of renal artery stenosis. [<reference, normal RI <.7>] ATED BY: KASH LONG MD DICTATED DATE/TIME: 08/16/2557 SIGNED BY: KASH LONG MD SIGNED DATE/TIME: 08/16/2557 ORDERING PHYSICIAN: FRAN ZEPEDA MD PROCEDURE(s): HWOCT - HEAD WITHOUT CONTRAST REASON: htn, dizziness ORDER NUMBER(s): [id number], ACCESSION NUMBER(s): [id number] EXAM DESCRIPTION: CT HEAD WITHOUT CONTRAST CLINICAL HISTORY: htn, dizziness COMPARISON: None TECHNIQUE: Noncontrast CT head was performed. Coronal MPR images were generated. CTDI/ DLP = / . Dose reduction technique with one or more of the following methods was performed: Automated exposure control, adjustment of the mA and/or kV according to patient size, use of iterative reconstruction technique. FINDINGS: No evidence of acute intracranial hemorrhage. No mass effect. No extra-axial collections of fluid or blood. The brain is normal in attenuation. The ventricles and sulci are normal in size for age. Clear basal cisterns. The calvarium is intact. The soft tissues are unremarkable. The paranasal sinuses and mastoid air cells are clear. IMPRESSION: 1. No acute intracranial findings. ATED BY: FORREST DAY MD DICTATED DATE/TIME: 08/14/25 1219 ORDERING PHYSICIAN: FRAN ZEPEDA MD PROCEDURE(s): CXRP - CHEST PORTABLE REASON: htn, dizziness ORDER NUMBER(s): [id number], ACCESSION NUMBER(s): [id number] CHEST PORTABLE, HISTORY: htn, dizziness COMPARISON: None None TECHNICAL DATA: 1 view of the chest was obtained. FINDINGS: Lines and tubes: None Cardiomediastinal silhouette: normal Pulmonary vasculature: normal Lung expansion: normal Lung airspace: normal Lung interstitium: normal Pleura: normal Pneumothorax: no Bones: Unremarkable Other: no IMPRESSION: No acute intrathoracic abnormality. ATED BY: LELAND SHEARER MD DICTATED DATE/TIME: 08/14/25 1214 Condition at Discharge: Stable Final Diagnosis/Problems List Hypertensive crisis Rule out secondary causes of hypertension Dyslipidemia ? Hypothyroidism Cannabis Use disorder Obesity BMI 33.7 Discharge Disposition: Home Discharge Instruct/Medications Diet: Cardiac 2g Na,low cholest Activity: No Restrictions, As Tolerated Follow Up/Referral: Follow Up with PCP in 1 week Medications: As per EMR Scheduled Amlodipine Besylate (Norvasc Tablet), 5 MG PO DAILY Atorvastatin Calcium (Atorvastatin Calcium), 20 MG PO HS Lisinopril (Lisinopril), 2 TAB PO DAILY Discharge Statement: "Patient was advised to return to the ER or call 911 if any headaches, dizziness, shortness of breath, chest pain, abdominal pain, bleeding, fevers, or worsening of medical condition. Patient was counseled about treatment plan, medications, possible side effects, patientverbalized understanding. All questions were answered to the best of my ability. This discharge took greater then 30 minutes in planning, reviewing documentation, counseling the patient, and discussing with other team members." ASSESSMENT ASSESSMENT Assessment Hyoertensive Crisis Date of Service: Aug 16, 2025 Billing Provider: JUAN GOOD MD Common Visit Codes: 62276-KDH/OBS DISCH DAY >30min UNIQUE FRY RESIDENT Aug 16, 2025 17:10 JUAN GOOD MD Aug 16, 2025 18:57
== END 2025-08-16 18:45 | disposition home or self-care (01) | DRG 305 ==
LOC: ER 11:11 → OVERFLOW 19:24 → WEST WING 22:30
PROVIDERS: ADMIT Internal Medicine; ATTEND Internal Medicine
DX: I16.1 Hypertensive emergency (principal); E03.9 Hypothyroidism, unspecified; E66.9 Obesity, unspecified; E78.5 Hyperlipidemia, unspecified; G43.909 Migraine, unspecified, not intractable, without status migrainosus; Z68.33 Body mass index [BMI] 33.0-33.9, adult; Z88.0 Allergy status to penicillin; Z79.899 Other long term (current) drug therapy
CPT/HCPCS: 36415; 70450; 70551; 71045; 80048; 80061; 80307; 81001; 82088; 82570; 82962; 83880; 84156; 84244; 84439; 84443; 84481; 84484; 85025; 85610; 85730; 93005; 93306; 93975; 96374; 96375; 99291; G0378; J1885; J2405